=== PATIENT | male | born 1960 | race Caucasian/White ===

== ENCOUNTER 2018-02-15 13:01 | Day surgery (SDC) | payer OTHER ==
[2018-02-15] MEDS ORDERED: LIDOCAINE 100 MG SYRINGE (14:29)
[2018-02-15] MEDS ORDERED: PROPOFOL 40 ML (14:29)
== END 2018-02-15 15:25 | disposition home or self-care (01) ==
LOC: GIL 13:01
DX: Z12.11 Encounter for screening for malignant neoplasm of colon (principal); K57.90 Diverticulosis of intestine, part unspecified, without perforation or abscess without bleeding; K64.8 Other hemorrhoids
CPT/HCPCS: 45378